=== PATIENT | male | born 1935 | race Hispanic/Latino ===

== ENCOUNTER 2019-07-09 01:22 | Observation (INO) | payer OTHER ==
[2019-07-09] VITALS (8 sets, daily range): BP systolic 145–179; BP diastolic 70–82
[~2019-07-09] VITALS: Ht 170.2 cm; Wt 97.5 kg
[2019-07-09 02:00] LABS: BASOPHILS # (AUTO) 0.1 (0.0-0.1); BASOPHILS % 0.7 % (0.0-1.0); EOSINOPHILS # (AUTO) 0.2 (0.0-0.4); EOSINOPHILS % 2.9 % (0.0-6.0); HEMATOCRIT 39.6 % (38.2-49.6); HEMOGLOBIN 13.1 g/dL (14.0-18.0); LYMPHOCYTES # (AUTO) 2.7 (1.0-3.2); LYMPHOCYTES % 32.8 % (18.0-39.1); MEAN CORPUSCULAR HEMOGLOBIN 29.6 pg (28-32); MEAN CORPUSCULAR HGB CONC 33.1 g/dL (31-35); MEAN CORPUSCULAR VOLUME 89.4 fL (81-99); MONOCYTES # (AUTO) 0.9 (0.2-0.8); MONOCYTES % 10.5 % (4.4-11.3); NEUTROPHILS # (AUTO) 4.3 (2.1-6.9); PLATELET COUNT 179 x10e3/uL (140-360); RED BLOOD COUNT 4.43 x10e6/uL (4.3-5.7); RED CELL DISTRIBUTION WIDTH 14.3 % (11.7-14.4)
[2019-07-09 02:08] LABS: INR 1.01; PROTHROMBIN TIME 13.8 seconds (11.9-14.5)
[2019-07-09 02:09] LABS: PARTIAL THROMBOPLASTIN TIME 34.8 seconds (23.8-35.5)
[2019-07-09 02:19] LABS: ALBUMIN 3.5 g/dL (3.5-5.0); ALBUMIN/GLOBULIN RATIO 0.9 (0.8-2.0); ANION GAP 11.4 mmol/L (8-16); CALCIUM 9.8 mg/dL (8.4-10.2); CREATININE, SERUM 1.21 mg/dL (0.72-1.25); POTASSIUM 3.4 mmol/L (3.5-5.1)
--- NOTE | 2019-07-09 02:19 | Diagnostic Imaging Report ---
EXAMINATION: CHEST SINGLE (PORTABLE) INDICATION: ^papitations ^[id number] ^0155 ^Y COMPARISON: None FINDINGS: AP view TUBES and LINES: None. LUNGS: Limited by rotation, low lung volumes, and body habitus. Left basilar opacification. PLEURA: No pneumothorax. HEART AND MEDIASTINUM: The cardiomediastinal silhouette is enlarged. Median sternotomy wires. BONES AND SOFT TISSUES: No acute osseous lesion. Degenerative changes of the right shoulder. Soft tissues are unremarkable. UPPER ABDOMEN: No free air under the diaphragm. IMPRESSION: Limited as above. Enlarged cardiomediastinal silhouette and mild central vascular congestion, accentuated by low lung volumes. Left basilar opacification, representing atelectasis/small effusion. Underlying pneumonia cannot be excluded in the appropriate clinical context. Signed by: Dr. Carmelo Pearce MD on 07/09/2019 2:15 AM
[2019-07-09 02:25] LABS: CREATINE KINASE MB 1.2 ng/mL (0-5.0)
[2019-07-09] MEDS ORDERED: POTASSIUM CHLORIDE 20 MEQ TAB CR PO STA (02:28)
[2019-07-09] MEDS ORDERED: SODIUM CHLORIDE FLUSH 10 ML SYR INJ PRN (02:45)
[2019-07-09] MEDS ORDERED: ONDANSETRON HCL INJ 2MG/ML 2ML 2 MG/ML VIAL IV PRN (02:45)
--- OUTSIDE RECORDS SUMMARY | 2019-07-09 03:04 | XMS REPORT ---
Author [facility] Address Unknown Phone Unavailable Care Team Providers Care Roguer Name Role Phone Rico RICH Unavailable Unavailable Problems This patient has no known problems. Allergies, Adverse Reactions, Alerts This patient has no known allergies or adverse reactions. Medications This patient has no known medications. Results Test Description Test Time Test Comments Text Results Atomic Results Result Comments CHEST SINGLE (PORTABLE) 2019-07-09 02:13:00 [place] [address] Patient Name: ADARSH LE MR #: [id number] : 1935 Age/Sex: 83/M Req #: [id number] Adm Physician: Ordered by: ULICES RICH MD Report #: [id number] Location: ER Room/Bed: Procedure: [id number] DX/CHEST SINGLE (PORTABLE) Exam Date: 07/09/19 Exam Time: 0155 REPORT STATUS: Signed EXAMINATION: CHEST SINGLE (PORTABLE) I NDICATION: papitations [id number] 015 Y COMPARISON: None FINDINGS: AP view TUBES and LINES: None. LUNGS: Limited by rotation, low lung volumes, and body habitus. Left basilar opacification. PLEURA: No pneumothorax. HEART AND MEDIASTINUM: The cardiomediastinal silhouette is enlarged. Median sternotomy wires. BONES AND SOFT TISSUES: No acute osseous lesion. Degenerative changes of the right shoulder. Soft tissues are unremarkable. UPPER ABDOMEN: No free air under the diaphragm. IMPRESSION: Limited as above. Enlarged cardiomediastinal silhouette and mild central vascular congestion, accentuated by low lung volumes. Left basilar opacification, representing atelectasis/small effusion. Underlying pneumonia cannot be excluded in the appropriate clinical context. Signed by: Dr. Carmelo Pearce MD on 07/09/2019 2:15 AM Dictated By: CARMELO PEARCE MD 4 Transcribed By: BELKIS on 07/09/19214 COPY TO: ULICES RICH MD
--- NOTE | 2019-07-09 04:00 | NUR ---
PT ARRIVED ON UNIT FROM ER VIA STRETCHER, SINHALA SPEAKING, FAMILY AT BEDSIDE, PT WITH NO C/O PAIN, TELE #4 ON PT, SR, WALKER GIVEN TO PT FOR ASSISTANCE TO BATHROOM, TOLD TO CALL FOR HELP, IV IN LEFT AC, O2 PRN, CALL LIGHT IN REACH, NO DISTRESS NOTED, VS STABLE,
--- NOTE | 2019-07-09 07:18 | NUR ---
Rcvd patient in report this am. Patient is asleep in bed at this time. No s/s of distress noted
[2019-07-09] MEDS ORDERED: HYDROCHLOROTHIA25 MG PO (08:55)
[2019-07-09] MEDS ORDERED: GABAPENTIN100 MG PO (08:55)
[2019-07-09] MEDS ORDERED: METOPROLOL TART25 MG PO (08:55)
[2019-07-09] MEDS ORDERED: ATORVASTATIN CA10 MG PO (08:55)
[2019-07-09] MEDS ORDERED: AVAPRO150 MG PO (08:55)
[2019-07-09] MEDS ORDERED: METFORMIN HCL500 M2 PO (08:55)
[2019-07-09] MEDS ORDERED: METOPROLOL TARTRATE 25 MG TAB PO SCH (09:00)
--- NOTE | 2019-07-09 09:00 | NUR ---
Patient is AAOx3. Patient has had no c/o chest pain. Lung carr clear to auscultation. No shortness of breath noted. Bowel sounds present x4. Left lower extremity 1+ edema noted with some redness of bilateral shins. No c/o pain. Left AC IV in place. Patient ambulates on his own. No chest palpations noted at this time.
[2019-07-09 09:23] LABS: ANION GAP 10.3 mmol/L (8-16); BLOOD UREA NITROGEN 12 mg/dL (7-26); BUN/CREATININE RATIO 10 (6-25); CALCIUM 9.8 mg/dL (8.4-10.2); CARBON DIOXIDE 30 mmol/L (22-29); CHLORIDE 102 mmol/L (98-107); CREATININE, SERUM 1.15 mg/dL (0.72-1.25); EST GLOMERULAR FILTRATION RATE > 60 ML/MIN (60-); GLUCOSE 196 mg/dL (74-118); POTASSIUM 4.3 mmol/L (3.5-5.1); SODIUM 138 mmol/L (136-145)
[2019-07-09] MEDS: HYDROCHLOROTHIAZIDE 25 MG TAB PO SCH (09:50)
[2019-07-09] MEDS: IRBESARTAN 150 MG TAB PO SCH (09:50)
[2019-07-09] MEDS: METOPROLOL TARTRATE 25 MG TAB PO SCH ×2 (09:50→16:26)
[2019-07-09] MEDS: CEPHALEXIN 500 MG CAP PO SCH ×3 (09:51→21:36)
[2019-07-09] MEDS: METFORMIN HCL 500 MG TAB CR PO SCH (09:51)
[2019-07-09 10:00] LABS: CREATINE KINASE MB 1.2 ng/mL (0-5.0)
[2019-07-09] MEDS: HYDROCORTISONE 1% CREAM 30 GM TUBE TOP SCH ×2 (10:39→17:10)
[2019-07-09] MEDS: GABAPENTIN 100 MG CAP PO SCH ×2 (13:01→21:36)
--- NOTE | 2019-07-09 14:20 | NUR ---
Visit made by the Spiritual Care Department Pastoral Visitor, Farzana Rooney. PV provided pastoral presence, hospitality, and supportive listening. Pastoral Visitor informed pt/family of the scope of [employer] and availability. ALICE ROSADO Nurse Rn [facility] Spiritual Care Department O: [phone] Pager: [phone] ([phone] number calling from)
--- NOTE | 2019-07-09 15:19 | History and Physical ---
CHIEF COMPLAINT: Tachycardia secondary to missing medication, the metoprolol did not good refill. HISTORY OF PRESENT ILLNESS: An 83-year-old male, came in with tachycardia and increase in blood pressure. The patient apparently was taking metoprolol and he ran out of medication over 24 hours. His blood pressure went up to the same with his heart rate. The patient is otherwise stable. No chest pain. He does have some venous incompetency of the lower extremity and some redness and itching, venous stasis, skin changes. Otherwise, no shortness of breath. The patient is otherwise stable. Medication is resumed today. PAST MEDICAL HISTORY: Coronary artery disease with previous bypass graft surgery. Hypertension, diabetes type 2, dyslipidemia, obesity, and chronic venous stasis of the lower extremity. PAST SURGICAL HISTORY: Bypass surgery. SOCIAL HISTORY: The patient does not smoke or use alcohol. No regular drugs. ALLERGIES: NO KNOWN ALLERGIES. HOME MEDICATIONS: List will be available for review. REVIEW OF SYSTEMS: As mentioned above. PHYSICAL EXAMINATION: VITAL SIGNS: Temperature is 97, blood pressure 166/82, pulse rate 104, and respirations 22. GENERAL: The patient is not in acute distress. He is awake. HEENT: Normocephalic, atraumatic. Pupils reactive. Anicteric. NECK: Supple grossly. PULMONARY: Diminished breath sounds. CARDIOVASCULAR: Tachycardia. ABDOMEN: Soft, obese. EXTREMITIES: Chronic venous skin changes of the lower extremity, some redness. NEUROLOGIC: No focal deficits. LABORATORY DATA: Sodium is 139, potassium 3.4, chloride 103, bicarb 28, BUN 14, creatinine 1.2, and glucose 155. WBC is 8.2, hemoglobin 13, hematocrit 39.6, and platelets 179. IMPRESSION: 1. Sinus tachycardia, increase in blood pressure, most likely rebound hypertension secondary to missing beta-chelsea. 2. Multiple chronic baseline. 3. 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 PLAN: Keflex for the lower extremity. Resume beta-chelsea. Adjust medication. Observation. We will replace potassium. Consultation with Dr. Harsha Colindres. The patient is getting echocardiogram today. MD ALDEN Romero/LARISSA /[id number] cc: Jennifer Tejeda MD
--- NOTE | 2019-07-09 15:29 | Consultation ---
DATE OF CONSULTATION: Cardiology Consult CHIEF COMPLAINT: The patient is an 83-year-old with palpitations. HISTORY OF PRESENT ILLNESS: The patient is an 83-year-old, who noticed his heart beating irregularly. The patient was called [facility] and was noted to have frequent PVCs. The patient was brought to the emergency room and admitted. The patient has had no chest pain, no shortness of breath. No syncope. No dizziness. No fevers. No nausea. No vomiting. PAST MEDICAL HISTORY: Significant for: 1. Previous coronary artery bypass grafting. 2. Hypertension. 3. Diabetes mellitus. 4. Hyperlipidemia. CURRENT MEDICATIONS: At home include omeprazole, clonidine, losartan/hydrochlorothiazide, simvastatin, and metoprolol. SOCIAL HISTORY: The patient does not drink and does not smoke. FAMILY HISTORY: There is a known family history of coronary artery disease. PHYSICAL EXAMINATION: GENERAL: The patient is a well-developed, well-nourished male, in no obvious distress. VITAL SIGNS: Included a temperature of 97.1, pulse of 84, and blood pressure 166/82. HEAD, EARS, EYES, NOSE, AND THROAT: The patient's cranium was normocephalic and atraumatic. Extraocular muscles were intact. Sclerae were anicteric. Pupils were equal, round, and reactive to light. There was no pallor or cyanosis of the oral mucosa. There is no erythema or edema of the throat. NECK: Supple. No jugular venous distention. No carotid bruits. CHEST: Clear to auscultation and percussion. CARDIAC: Demonstrated normal S1 and S2. A short 2/6 systolic murmur. ABDOMEN: Demonstrated good bowel sounds. No tenderness and no masses. EXTREMITIES: There was no clubbing, no cyanosis, and no edema. NEUROLOGIC: The patient is alert and oriented x3. Cranial nerves II through XII are intact. Motor strength was +5/+5 in all limbs. IMAGING: The patient's EKG demonstrated normal sinus rhythm with some nonspecific ST and T-wave changes. IMPRESSION: The patient is an 83-year-old with some palpitations, which appear to be secondary to the premature ventricular contractions. I suspect the patient's premature ventricular contractions may be related to hypokalemia. RECOMMENDATIONS: As follows: 1. The patient will be given potassium supplement. 2. The patient will require echocardiogram. 3. The patient will need to be monitored on telemetry. MD NANI Sher/LARISSA /[id number] cc: Quique Pederson MD
[2019-07-09 18:23] LABS: CREATINE KINASE MB 1.2 ng/mL (0-5.0)
--- NOTE | 2019-07-09 19:00 | NUR ---
RECEIVED PATIENT IN BEDSIDE SHIFT REPORT. PATIENT IS RESTING IN BED AT THIS TIME, MANY FAMILY MEMBERS AT BEDSIDE. NO PAIN REPORTED. NO S&S OF DISTRESS NOTED. BED LOCKED IN LOWEST POSITION, SIDE RAILS UPX2, CALL LIGHT IN REACH.
[2019-07-09] MEDS ORDERED: ATORVASTATIN 10 MG TAB PO SCH (21:00)
[2019-07-10] VITALS: BP 156/76
[2019-07-10 04:00] VITALS: BP 142/66
[2019-07-10 05:49] LABS: BASOPHILS % 0.5 % (0.0-1.0); EOSINOPHILS # (AUTO) 0.3 (0.0-0.4); EOSINOPHILS % 2.9 % (0.0-6.0); HEMATOCRIT 39.6 % (38.2-49.6); HEMOGLOBIN 12.9 g/dL (14.0-18.0); LYMPHOCYTES # (AUTO) 3.5 (1.0-3.2); LYMPHOCYTES % 41.1 % (18.0-39.1); MEAN CORPUSCULAR HEMOGLOBIN 29.1 pg (28-32); MEAN CORPUSCULAR HGB CONC 32.6 g/dL (31-35); MEAN CORPUSCULAR VOLUME 89.4 fL (81-99); MONOCYTES % 11.7 % (4.4-11.3); NEUTROPHILS # (AUTO) 3.8 (2.1-6.9); NEUTROPHILS % 43.7 % (38.7-80.0); PLATELET COUNT 191 x10e3/uL (140-360); RED BLOOD COUNT 4.43 x10e6/uL (4.3-5.7); RED CELL DISTRIBUTION WIDTH 14.5 % (11.7-14.4)
[2019-07-10] MEDS ORDERED: POTASSIUM CHLORIDE 10MEQ EA PO SCH (06:00)
[2019-07-10 06:12] LABS: ALANINE AMINOTRANSFERASE 14 IU/L (0-55); ALBUMIN 3.1 g/dL (3.5-5.0); ALBUMIN/GLOBULIN RATIO 0.9 (0.8-2.0); ALKALINE PHOSPHATASE 79 IU/L (40-150); ANION GAP 9.7 mmol/L (8-16); BLOOD UREA NITROGEN 12 mg/dL (7-26); BUN/CREATININE RATIO 10 (6-25); CALCIUM 9.9 mg/dL (8.4-10.2); CARBON DIOXIDE 30 mmol/L (22-29); CHLORIDE 103 mmol/L (98-107); CREATININE, SERUM 1.15 mg/dL (0.72-1.25); EST GLOMERULAR FILTRATION RATE > 60 ML/MIN (60-); GLUCOSE 163 mg/dL (74-118); POTASSIUM 4.7 mmol/L (3.5-5.1); SODIUM 138 mmol/L (136-145)
[2019-07-10 06:40] LABS: CHOL/HDL RATIO 3.8 (3.9-4.7)
[2019-07-10] MEDS: CEPHALEXIN 500 MG CAP PO SCH (07:02)
--- NOTE | 2019-07-10 07:23 | NUR ---
RECEIVED PATIENT RESTING IN BED NO S/S OF DISTRESS. BED LOW, WHEELS LOCKED, SIDE RAILS X2. CALL LIGHT IN REACH WILL CONTINUE TO MONITOR PATIENT.
[2019-07-10 07:51] VITALS: BP 174/81
[2019-07-10] MEDS ORDERED: AMLODIPINE BESYLATE 5 MG TAB PO ONE (08:30)
[2019-07-10] MEDS: GABAPENTIN 100 MG CAP PO SCH (08:31)
[2019-07-10] MEDS: HYDROCORTISONE 1% CREAM 30 GM TUBE TOP SCH (08:31)
[2019-07-10] MEDS: METOPROLOL TARTRATE 25 MG TAB PO SCH (08:31)
[2019-07-10] MEDS: IRBESARTAN 150 MG TAB PO SCH (08:31)
[2019-07-10] MEDS: METFORMIN HCL 500 MG TAB CR PO SCH (08:31)
[2019-07-10] MEDS: HYDROCHLOROTHIAZIDE 25 MG TAB PO SCH (08:31)
[2019-07-10 09:37] VITALS: BP 174/81
[2019-07-10] MEDS ORDERED: ONDANSETRON HCL 4 MG ORAL DISINTEGRATING TAB PO PRN (10:15)
[2019-07-10 11:39] VITALS: BP 144/80
[2019-07-10] MEDS ORDERED: METOPROLOL TART50 MG PO (12:38)
[2019-07-10] MEDS ORDERED: NORVASC5 MG PO (12:39)
[2019-07-10] MEDS ORDERED: K DUR10 MEQ PO (12:39)
--- NOTE | 2019-07-10 12:54 | NUR ---
REMOVED PATIENTS IV. CATHETER TIP INTACT AND PRESSURE DRESSING APPLIED.
--- NOTE | 2019-07-10 12:59 | NUR ---
PATIENT DISCHARGED FROM FACILITY. PATIENT GATHERED ALL PERSONAL BELONGINGS, DISCHARGE INSTRUCTIONS, AND FOLLOW UP INFORMATION. LEFT UNIT IN WHEELCHAIR AND WENT HOME VIA PRIVATE AUTO. NO SIGNS OF DISTRESS WHEN LEAVING FACILITY.
== END 2019-07-10 12:59 | disposition home or self-care (01) ==
LOC: ER 01:22 → ERHOLD 03:01 → MED/SURG 03:28
PROVIDERS: ADMIT Internal Medicine; ATTEND Internal Medicine
DX: I16.0 Hypertensive urgency (principal); R00.0 Tachycardia, unspecified; Z91.14 Patient's other noncompliance with medication regimen; I10 Essential (primary) hypertension; E66.9 Obesity, unspecified; Z68.33 Body mass index [BMI] 33.0-33.9, adult; I87.2 Venous insufficiency (chronic) (peripheral); E11.9 Type 2 diabetes mellitus without complications
CPT/HCPCS: 36415 ×2; 71045; 80048; 80053 ×2; 80061; 82550; 82553; 82948 ×2; 83735; 83880; 84484; 85025 ×2; 85610; 85730; 93005; 93306; 99284; G0378 ×2